=== PATIENT | female | born 1995 | race African-American/Black ===

== ENCOUNTER 2020-04-28 04:20 | Emergency (ER) | payer OTHER ==
[~2020-04-28] VITALS: Ht 149.9 cm; Wt 68.9 kg
[2020-04-28 04:27] VITALS: BP 120/55
--- NOTE | 2020-04-28 04:31 | NUR ---
PT TAKEN TO BED 1 VIA [facility].
--- NOTE | 2020-04-28 04:41 | NUR ---
EKG PERFORMED AT BEDSIDE AND SHOWN TO MD ACEVES
--- NOTE | 2020-04-28 04:41 | NUR ---
PT WOKE UP AT 3AM AND WAS HAVING HEART PALPATATIONS. DENIES ANY SOB, +NAUSEA, NO VOMITING. AFEBRILE. DENIES HAVING ANY CHEST PAIN OR PRESSURE. HX OF TACHYCARDIA, PT IS SUPPOSE TO TAKE MEDS FOR HER CONDITION BUT DOES NOT TAKE THEM, UNKNOWN NAME OF MEDS. A/0 X4, RESPIRATIONS REGULAR, EVEN, AND UNLABORED. PT PLACED IN GOWN AND ON BEDSIDE MONITOR. BED IN LOWEST POSITION AND SIDERAIL UP X 1. ALLERGY - SODIUM FLORIDE HX - ASTHMA, TACHYCARDIA
[2020-04-28] MEDS ORDERED: MAG SULF 2000 MG/WATER PREMIX 50 ML IV ONE (05:05)
[2020-04-28] MEDS ORDERED: NACL 0.9% 1,000 ML IV ONE (05:05)
--- NOTE | 2020-04-28 05:17 | NUR ---
PT PROVIDED W/ URINE SPECIMEN CUP FOR ENCOURAGEMENT OF URINE SAMPLE. PT AMBULATED TO RESTROOM W/ STEADY GAIT.
[2020-04-28] MEDS ORDERED: METOCLOPRAMIDE 10 MG/2 ML INJ VIAL IVP ONE (05:20)
--- NOTE | 2020-04-28 05:34 | NUR ---
X-RAY AT BEDSIDE
--- NOTE | 2020-04-28 05:50 | NUR ---
LABS COLLECTED AND WALKED TO LAB
--- NOTE | 2020-04-28 05:50 | NUR ---
BLOOD LABS COLLECTED AND WALKED TO LAB.
--- NOTE | 2020-04-28 06:11 | NUR ---
PT STATES SHE IS FEELING BETTER BUT DOES STILL HAVE SOME NAUSEA. PT REMAINS ON BEDSIDE MONITOR. CONTINUES TO DENY ANY CHEST PAIN OR SOB
[2020-04-28 06:32] LABS: BASOPHILS # (AUTO) 0.1 K/uL (0.00-0.22); BASOPHILS % (AUTO) 0.6 % (0.0-2.0); EOSINOPHILS % (AUTO) 0.3 % (0.0-4.0); HEMATOCRIT 35.8 % (36-48); HEMOGLOBIN 12.1 g/dL (12.0-16.0); LYMPHOCYTES # (AUTO) 1.2 K/uL (2.5-16.5); LYMPHOCYTES % (AUTO) 13.4 % (20.5-51.1); MEAN CORPUSCULAR HEMOGLOBIN 32 pg (27-31); MEAN CORPUSCULAR HGB CONC 34 g/dL (33-37); MEAN CORPUSCULAR VOLUME 93.1 fL (80-94); MONOCYTES # (AUTO) 0.4 K/uL (0.8-1.0); MONOCYTES % (AUTO) 4.4 % (1.7-9.3); NEUTROPHILS # (AUTO) 7.3 K/uL (1.8-7.7); NEUTROPHILS % (AUTO) 81.3 % (42.2-75.2); PLATELET COUNT (AUTO) 355 K/uL (140-450); RED BLOOD CELL COUNT(AUTO) 3.84 MIL/uL (4.20-5.40); RED CELL DISTRIBUTION WIDTH 12.3 % (11.6-13.7); WHITE BLOOD COUNT (AUTO) 8.9 K/uL (4.8-10.8)
--- NOTE | 2020-04-28 06:47 | NUR ---
ULTRASOUND AT BEDSIDE
[2020-04-28 06:58] LABS: ANION GAP 15.5 (8-16); CARBON DIOXIDE 23.6 mmol/L (21-32); CREATININE 0.7 mg/dL (0.6-1.3); POTASSIUM 3.1 mmol/L (3.5-5.1)
--- NOTE | 2020-04-28 07:20 | NUR ---
Pt report given to JESS MCKNIGHT. Transfer of care at this time.
[2020-04-28 07:32] LABS: FREE T4 (FREE THYROXINE) 1.04 ng/dL (0.76-1.46); THYROID STIMULATING HORMONE 1.92 uIU/mL (0.34-3.74)
--- NOTE | 2020-04-28 08:06 | NUR ---
U/S tech at pt bedside.
[2020-04-28] MEDS ORDERED: MAGNESIUM OXIDE 400 MG TAB PO ONE (08:10)
[2020-04-28] MEDS ORDERED: POTASSIUM CHLORIDE 10 MEQ TABER PO ONE (08:10)
[2020-04-28 08:26] LABS: APPEARANCE,URINE HAZY (CLEAR); BILIRUBIN,URINE 1+ (NEGATIVE); BLOOD, URINE TRACE-I (NEGATIVE); COLOR,URINE YELLOW (YELLOW); LEUKOCYTE ESTERASE ,URINE NEGATIVE (NEGATIVE); NITRITE, URINE NEGATIVE (NEGATIVE); UGLUCOSE NEGATIVE (NEGATIVE)
--- NOTE | 2020-04-28 08:27 | NUR ---
Pt refused PO K+ tablets, [address] [facility] [address] Kidd made aware.
[2020-04-28] MEDS ORDERED: POTASSIUM CHLORIDE 20% 40 MEQ/15 ML UDC PO ONE (08:30)
--- NOTE | 2020-04-28 08:51 | NUR ---
Pt vomited K+ 30mL liquid ordered, Dr. Kidd made aware.
[2020-04-28 09:37] VITALS: BP 11/64
--- NOTE | 2020-04-28 09:37 | NUR ---
IV d/c, 2x2 gauze placed to iv site, bleeding controlled
--- NOTE | 2020-04-28 09:40 | NUR ---
Patient discharged with v/s stable. Written and verbal after care instructions given and explained. Patient verbalized understanding. Ambulatory with steady gait. All questions addressed prior to discharge. Advised to follow up with PMD.
[2020-04-28 09:52] LABS: RBC,URINE 0-5 /HPF (0-5); WBC,URINE 0-5 /HPF (0-5)
[2020-04-28 09:59] LABS: BARBITURATE, URINE NEGATIVE ng/ml (NEG <=200); BENZODIAZEPINE, URINE NEGATIVE ng/mL (NEG <=200); CANNABINOID, URINE NEGATIVE ng/mL (NEG <=50); COCAINE, URINE NEGATIVE ng/mL (NEG <=300); OPIATE, URINE NEGATIVE ng/mL (NEG <=2000); PHENCYCLIDINE SCREEN,URINE NEGATIVE ng/mL (NEG <=25)
== END 2020-04-28 09:40 | disposition home or self-care (01) ==
LOC: MED 04:20
DX: R00.0 Tachycardia, unspecified (principal); R94.31 Abnormal electrocardiogram [ECG] [EKG]; I63.9 Cerebral infarction, unspecified; J45.909 Unspecified asthma, uncomplicated; Z88.6 Allergy status to analgesic agent; Z34.91 Encounter for supervision of normal pregnancy, unspecified, first trimester
CPT/HCPCS: 36415; 71045; 76801; 80048; 80305; 81001; 81025; 83880; 84439; 84443; 84484; 84702; 85025; 85379; 93970; 96365; 99285; J3475; J7030

== ENCOUNTER 2022-01-03 09:46 | Emergency (ER) | payer OTHER ==
[~2022-01-03] VITALS: Ht 149.9 cm; Wt 55.8 kg
[2022-01-03 09:48] VITALS: BP 110/65
--- NOTE | 2022-01-03 09:59 | NUR ---
BIBA FROM HOME C/O BRIGHT RED VAG BLEEDING AND PELVIC PAIN ONSET 3DAYS AGO. STATES LAST SUNDAY @ 10WK AND HAS BEEN SATURATING 3 PADS PER DAY. . STATES NOTICED DARK RED BLOOD SATURATING AFTER SX BUT STARTED TO NOTICE BRIGHT RED BLOOD STARTING SUNDAY ACCOMPANIED BY 10/10 PAIN. PMH: STV, ASTHMA, (12/26/21)
--- NOTE | 2022-01-03 10:04 | NUR ---
FEMALE HAND CUTTER AT BEDSIDE ACCOMPANYING DR MAHAN FOR PELVIC EXAM.
[2022-01-03] MEDS ORDERED: NACL 0.9% 1,000 ML IV ONE (10:10)
[2022-01-03] MEDS ORDERED: KETOROLAC 15 MG/ML VIAL IVP ONE (10:10)
[2022-01-03 10:28] LABS: BASOPHILS # (AUTO) 0.1 K/uL (0.00-0.22); BASOPHILS % (AUTO) 0.6 % (0.0-2.0); EOSINOPHILS # (AUTO) 0.1 K/uL (0-0.4); EOSINOPHILS % (AUTO) 0.7 % (0.0-4.0); HEMATOCRIT 34.7 % (36-48); HEMOGLOBIN 11.6 g/dL (12.0-16.0); LYMPHOCYTES % (AUTO) 18.7 % (20.5-51.1); MEAN CORPUSCULAR HEMOGLOBIN 33 pg (27-31); MEAN CORPUSCULAR HGB CONC 34 g/dL (33-37); MEAN CORPUSCULAR VOLUME 97.4 fL (80-94); MONOCYTES # (AUTO) 0.7 K/uL (0.8-1.0); MONOCYTES % (AUTO) 6.3 % (1.7-9.3); NEUTROPHILS # (AUTO) 7.7 K/uL (1.8-7.7); NEUTROPHILS % (AUTO) 73.7 % (42.2-75.2); PLATELET COUNT (AUTO) 387 K/uL (140-450); RED BLOOD CELL COUNT(AUTO) 3.56 MIL/uL (4.20-5.40); RED CELL DISTRIBUTION WIDTH 12.7 % (11.6-13.7); WHITE BLOOD COUNT (AUTO) 10.5 K/uL (4.8-10.8)
[2022-01-03 10:45] LABS: PROTHROMBIN TIME 10.6 secs (10.8-13.4)
[2022-01-03 10:51] LABS: ALBUMIN 3.1 g/dL (3.4-5.0); ANION GAP 16.6 (8-16); CARBON DIOXIDE 21.8 mmol/L (21-32); CREATININE 0.6 mg/dL (0.6-1.3); POTASSIUM 3.4 mmol/L (3.5-5.1); TOTAL BILIRUBIN 0.6 mg/dL (0.0-1.0)
--- NOTE | 2022-01-03 11:07 | NUR ---
URINE COLLECTED AND SENT TO LAB
--- NOTE | 2022-01-03 11:23 | NUR ---
US AT BEDSIDE
[2022-01-03 13:16] VITALS: BP 115/67
== END 2022-01-03 13:16 | disposition home or self-care (01) ==
LOC: MED 09:46
DX: N93.9 Abnormal uterine and vaginal bleeding, unspecified (principal); Z20.822 Contact with and (suspected) exposure to COVID-19; D64.9 Anemia, unspecified; J45.909 Unspecified asthma, uncomplicated; Z86.73 Personal history of transient ischemic attack (TIA), and cerebral infarction without residual deficits; Z88.8 Allergy status to other drugs, medicaments and biological substances; Z98.890 Other specified postprocedural states
CPT/HCPCS: 36415; 76817; 80053; 81025; 85025; 85610; 85730; 86900; 86901; 87426; 96374; 99284; J1885; Q0092; J7030